=== PATIENT | male | born 1955 | race African-American/Black ===

== ENCOUNTER 2016-07-21 15:44 | Emergency (ER) | payer OTHER ==
[2016-07-21 15:58] VITALS: BP 135/91; PULSE 98; TEMP 97.9; BMI 27.5
--- NOTE | 2016-07-21 15:59 | PDOC ---
Rapid Medical Evaluation Time Seen by Provider: 07/21/16 15:46 Medical Evaluation: Allergies Allergy/AdvReac Type Severity Reaction Status Date / Time codeine Allergy Severe Itching Verified 07/17/16 18:08 oxycodone Allergy Severe Itching Verified 07/17/16 18:08 oxycodone HCl Allergy Severe Nausea Verified 07/17/16 18:08 [From OxyContin] 07/21/16 15:52 I have performed a brief in-person evaluation of this patient. Mr. Fuentes is a 61 yo M who presents to the ER for pain medication refill He was seen here 3 days ago for shingles and discharged with 3 days of pain medications States he is having difficulty driving because he can't sit back and rest his back on the seat due to severe pain It feels like he is " being stung by bees from the inside out" He is taking Ibuprofen 800mg tid (which is giving him gastritis) in addition to percocet Pertinent physical exam findings: Left chest wall blisters, predominantly scabbed over The patient will proceed to [facility] for MEDICATION REFILL
--- NOTE | 2016-07-21 17:51 | PDOC ---
History of Present Illness - General Chief Complaint: RX Refill Stated Complaint: RX REFILL Time Seen by Provider: 07/21/16 15:46 History Source: Patient Exam Limitations: No Limitations - History of Present Illness Initial Comments: 07/21/16 17:50 Chief complaint: Pain along area on left back that extends to left thumb in since having shingles History of present illness: This is 61-year-old male with a history of degenerative disc disease L1 L5, right knee construction, right shoulder chronic pain labrum tear here today complaining of severe pain along dermatome from left lower thoracic area extending around torso to left upper abdomen. She was seen here on 07/17/2016 and diagnosed with herpes zoster. Patient reports that pain is currently a 9 out of 10 sharp. Patient denies any numbness of area or radiation of pain downward or upward is directly along the dermatome. Patient denies any fever. Patient reports that the pain feels slight obese stain from inside. Patient has been taking ibuprofen however he reports that his dentist upset his stomach. Timing/Duration: changing over time Severity: severe (left lower thoracic back radiates to left torso) Associated Symptoms: reports: other (has dried scabs from shingles left lower thoracic back extends to left anterior torso ) Past History - Past Medical History Allergies/Adverse Reactions: Allergies Allergy/AdvReac Type Severity Reaction Status Date / Time codeine Allergy Severe Itching Verified 07/17/16 18:08 oxycodone Allergy Severe Itching Verified 07/17/16 18:08 oxycodone HCl Allergy Severe Nausea Verified 07/17/16 18:08 [From OxyContin] Home Medications: Ambulatory Orders Aspirin [Ecotrin] 81 mg PO DAILY 06/12/16 Butalb/Acetaminophen/Caffeine [Fioricet 50-300-40 mg Capsule] 1 each PO ASDIR PRN 06/12/16 Hydrocodone/Acetaminophen [Vicodin Es 7.5-300 mg Tablet] 1 each PO ASDIR PRN 10/21 Ibuprofen [Motrin -] 800 mg PO BID PRN 06/12/16 Tizanidine HCl 2 mg PO TID 06/12/16 Valacyclovir HCl [Valtrex -] 1,000 mg PO TID #21 tablet 07/17/16 Valacyclovir HCl [Valtrex -] 1,000 mg PO TID #21 tablet 07/17/16 Hydrocodone/Acetaminophen [Vicodin Es 7.5-300 mg Tablet] 1 each PO Q8H PRN #10 tablet MDD 3 07/21/16 Anemia: No Asthma: No Cancer: No Cardiac Disorders: No CVA: No COPD: No CHF: No Dementia: No Diabetes: No GI Disorders: No Disorders: No HTN: Yes Hypercholesterolemia: No Liver Disease: No Seizures: No Thyroid Disease: No - Surgical History Abdominal Surgery: No Appendectomy: No Cardiac Surgery: No Cholecystectomy: No Lung Surgery: No Neurologic Surgery: No Orthopedic Surgery: Yes (RIGHT KNEE PATELLA REPAIR, ACL) - Psycho/Social/Smoking Cessation Hx Anxiety: No Suicidal Ideation: No Smoking History: Never smoked Have you smoked in the past 12 months: No Information on smoking cessation initiated: No Hx Alcohol Use: No Drug/Substance Use Hx: No Substance Use Type: Alcohol, Prescribed Hx Substance Use Treatment: No (DENIES) Review of Systems - Review of Systems Able to Perform ROS?: Yes Constitutional: No: Symptoms Reported HEENTM: No: Symptoms Reported Respiratory: No: Symptoms reported Cardiac (ROS): No: Symptoms Reported ABD/GI: No: Symptoms Reported : No: Symptoms Reported Musculoskeletal: No: Symptoms Reported Integumentary: Yes: Other (dried scabs left lower thoracic back extends around to left anterior torso ) Neurological: Yes: Other (intense pain left lower thoracic extends to left torso ) *Physical Exam - Vital Signs Last Vital Signs Temp Pulse Resp BP Pulse Ox 97.9 F 98 H 20 135/91 97 07/21/16 15:54 07/21/16 15:54 07/21/16 15:54 07/21/16 15:54 07/21/16 15:54 - Physical Exam General Appearance: Yes: Appropriately Dressed Respiratory/Chest: positive: Lungs Clear, Normal Breath Sounds. negative: Chest Tender, Respiratory Distress Cardiovascular: positive: Regular Rhythm, Regular Rate, S1, S2 Integumentary: positive: Other (dried scabs left lower thoracic back extends around to left anterior torso ) Neurologic: positive: Alert, Normal Response, Respond to painful stimul (left back/ anterior left torso ), Responsive Medical Decision Making - Medical Decision Making 07/21/16 18:10 07/21/16 18:14 This is 61-year-old male with a history of degenerative disc disease L1 L5, right knee construction, right shoulder chronic pain labrum tear here today complaining of severe pain along dermatome from left lower thoracic area extending around torso to left upper abdomen. She was seen here on 07/17/2016 and diagnosed with herpes zoster. Patient reports that pain is currently a 9 out of 10 sharp. Patient denies any numbness of area or radiation of pain downward or upward is directly along the dermatome. Patient denies any fever. Patient reports that the pain feels slight obese stain from inside. Patient has been taking ibuprofen however he reports that his dentist upset his stomach. Herpes zoster neuropathy PLAN: Vicodin 7. 5300 milligrams tablets one tab every 8 hours as needed for severe pain #10 tabs given Patient to follow up with his primary care provider for further pain medications he will be back on 07/26/2016. 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 - Discharge Dispostion Disposition: HOME Condition at time of disposition: Stable - Prescriptions Prescriptions: Hydrocodone/Acetaminophen [Vicodin Es 7.5-300 mg Tablet] 1 each PO Q8H PRN #10 tablet MDD 3 PRN Reason: Pain Level 6-10 - Referrals Referrals: Chadd Haque MD [Primary Care Provider] - - Patient Instructions Additional Instructions: Follow-up with your primary care provider within the next few days Return to emergency room if symptoms worsen Continue to take the medications that were ordered here previously until finished Patient voiced understanding of discharge instructions and all questions were answered
== END 2016-07-21 18:16 | disposition home or self-care (01) ==
LOC: JERFT 15:44 → SUPCPDRO 15:44 → JERFT 18:16
DX: B02.23 Postherpetic polyneuropathy (principal); M19.90 Unspecified osteoarthritis, unspecified site; G89.29 Other chronic pain
CPT/HCPCS: 99281-25